=== PATIENT | male | born 1955 | race Asian ===

== ENCOUNTER → 2017-05-23 | Outpatient (CLI) | payer BC ==
[~2017-05-23] MED LIST: MULT-506 PO
--- NOTE | 2017-05-23 11:03 | DIAGNOSTIC IMAGING REPORT ---
L HAND MIN 3 VIEWS ROUTINE CLINICAL HISTORY: INJURY TO L HAND INCLUDING FINGERS trauma. Pain. COMPARISON: None. DISCUSSION: The bones and joint spaces appear intact. There is no evidence of fracture, dislocation or bony disease. There is no evidence for soft tissue swelling. IMPRESSION: Negative study. The above report was generated using voice recognition software. It may contain grammatical, syntax or spelling errors. Electronically signed by: Jose Miguel Reddy M.D. 05/23/2017 11:02 AM Dictated Date/Time: 05/23/2017 11:01 AM
== END | disposition home or self-care (01) ==
LOC: C.RAD 10:31
PROVIDERS: ATTEND Nurse Practitioner
DX: S69.92XA Unspecified injury of left wrist, hand and finger(s), initial encounter (principal); X58.XXXA Exposure to other specified factors, initial encounter